=== PATIENT | male | born 1950 | race Caucasian/White ===

== ENCOUNTER 2023-03-05 16:13 | Emergency (ER) | payer MEDICARE, SELFPAY ==
[2023-03-05 16:19] VITALS: BP 163/111; PULSE 72; RESP 18; O2SAT 96; BMI 39.1
--- NOTE | 2023-03-05 16:32 | ED.GENADUL1 ---
HPI - General Adult General Chief complaint: Extremity Injury, Lower Stated complaint: leg injury Time Seen by Provider: 03/05/23 16:20 Source: patient Mode of arrival: walk-in History of Present Illness HPI narrative: 72-year-old male presents for right calf area pain. He's been having some soreness for a few days and he was walking today and felt a popping sensation. He didn't fall. He doesn't complain of pain specifically in the ankle or knee, is in the right posterior lateral calf region. No chest pain or shortness of breath. No personal history of deep vein thrombosis but he states that both his mother and father had them. Related Data Previous Rx's Medication Instructions Recorded acetaminophen 300 mg-codeine 30 mg 1 tab PO Q6H PRN pain 5 days #20 03/05/23 tablet tabs Allergies Allergy/AdvReac Type Severity Reaction Status Date / Time No Known Drug Allergies Allergy Verified 03/05/23 16:22 Review of Systems ROS Narrative A ten point review of systems is negative except as noted above. [facility] Medical History (Updated 03/05/23 @ 17:18 by Addison Ma MD) Hypertension ?I10 - Essential (primary) hypertension (ICD-10) Exam Narrative Exam Narrative: Nurses note and vital signs reviewed and patient is not hypoxic. General: The patient appears well and in no apparent distress. Patient is sitting in a wheelchair. Skin: Warm, dry, no pallor noted. There is no rash noted. Head: Normocephalic, atraumatic Eye: Normal conjunctiva, no drainage Ears, Nose, Mouth, and Throat: oral mucosa is moist. Nares patent. Cardiovascular: Regular Rate and Rhythm Respiratory: Patient is in no distress, no accessory muscle use, lungs are clear to auscultation, no wheezing, rales or rhonchi Back: non-tender GI: soft and nontender Musculoskeletal: he has some tenderness in the right calf area. He does not seem to have tenderness in the ankle or knee. Neurological: A&O, normal speech Psychiatric: Cooperative Constitutional Vital Signs, click to edit/add: Last Vital Signs Pulse 72 03/05/23 16:19 Resp 18 03/05/23 16:19 BP 163/111 H 03/05/23 16:19 Pulse Ox 96 03/05/23 16:19 O2 Del Method Room Air 03/05/23 16:25 Course Vital Signs Vital signs: Vital Signs Pulse Rate 72 03/05/23 16:19 Respiratory Rate 18 03/05/23 16:19 Blood Pressure 163/111 H 03/05/23 16:19 Pulse Oximetry 96 03/05/23 16:19 Oxygen Delivery Method Room Air 03/05/23 16:19 Pulse Rate 72 03/05/23 16:19 Respiratory Rate 18 03/05/23 16:19 Blood Pressure 163/111 H 03/05/23 16:19 Pulse Oximetry 96 03/05/23 16:19 Oxygen Delivery Method Room Air 03/05/23 16:25 Medical Decision Making MDM Narrative Medical decision making narrative: x-ray shows some soft tissue swelling but no fracture. Saman wrap applied and application checked by me and found be appropriate, he is neurovascular intact. Doppler ultrasound is ordered for tomorrow, it is not available today. The importance of returning tomorrow for the ultrasound was discussed thoroughly. I do not feel that Lovenox is warranted given that he already has some soft tissue swelling. If his Doppler were to be positive intervention would need to be taken. Differential Diagnosis Differential Diagnosis: leg sprain, leg fracture, deep vein thrombosis Imaging Data tibia x-ray: Radiologist's impression: Procedure: XR tibia fibula RT 2V IMAGES REVIEWED: XR tibia fibula RT 2V COMPARISON: None available. CLINICAL INDICATION: pain FINDINGS/IMPRESSION: 1. Moderate circumferential soft tissue swelling of the right leg extending into the ankle. 2. No soft tissue gas collections or radiopaque foreign bodies. 3. No evidence of acute osseous abnormality. Electronically authenticated by: OMAR HERRMANN Discharge Plan Discharge Chief Complaint: Extremity Injury, Lower Clinical Impression: Leg pain, right Patient Disposition: Home, Self-Care Time of Disposition Decision: 17:16 Condition: Good Mode of Transportation: Private Vehicle Prescriptions / Home Meds: New acetaminophen-codeine 300-30 mg tablet 1 tab PO Q6H PRN (Reason: pain) 5 Days Qty: 20 0RF Instructions: Leg Pain (ED) Additional Instructions: Doppler at 3 PM tomorrow; go to patient registration desk Blood pressure recheck from your PCP Stand Alone Forms: Portal Instructions Referrals: BRENDA BASILIO [Primary Care Provider] - 1 week
--- NOTE | 2023-03-05 16:48 | XR_ITS ---
The [address] [address] Patient Name: HALEIGH CARRIZALES MRN: [id number] date: 1950 Sex: M Assigned Patient Location: ED.MAIN Current Patient Location: ER Accession/Order Number: [id number] Exam Date: 03/05/2023 16:40 Report Date: 03/05/2023 17:05 At the request of: RADHA ZEPEDA Procedure: XR tibia fibula RT 2V IMAGES REVIEWED: XR tibia fibula RT 2V COMPARISON: None available. CLINICAL INDICATION: pain FINDINGS/IMPRESSION: 1. Moderate circumferential soft tissue swelling of the right leg extending into the ankle. 2. No soft tissue gas collections or radiopaque foreign bodies. 3. No evidence of acute osseous abnormality. Electronically authenticated by: OMAR HERRMANN Date: 03/05/2023 17:05
== END 2023-03-05 17:33 | disposition home or self-care (01) ==
PROVIDERS: Emergency Provider Emergency Medicine; PCP Nurse Practitioner Family
DX: M79.661 Pain in right lower leg (principal); I10 Essential (primary) hypertension
CPT/HCPCS: 73590; 99284

== ENCOUNTER 2023-03-06 15:07 | Outpatient (OUT) | payer MEDICARE, SELFPAY ==
--- NOTE | 2023-03-06 | US_ITS ---
The [address] [address] Patient Name: HALEIGH CARRIZALES MRN: [id number] date: 1950 Sex: M Assigned Patient Location: [facility] Current Patient Location: Accession/Order Number: [id number] Exam Date: 03/06/2023 15:00 Report Date: 03/09/2023 06:41 At the request of: RADHA ZEPEDA Procedure: US venous doppler LE RT EXAMINATION: US venous doppler LE RT HISTORY: LEG PAIN ; right calf pain COMPARISON: No relevant comparison available. FINDINGS: REGION: Right lower extremity THROMBI: None. COMPRESSIBILITY: Normal compressibility. FLOW: Normal waveform and antegrade flow between 5 and 20 cm/s. OTHER: None. US/US venous doppler LE RT IMPRESSION: 1. No deep vein thrombus within the right lower extremity. Electronically authenticated by: PARVIN JAMES Date: 03/09/2023 06:41
== END 2023-03-06 15:08 | disposition home or self-care (01) ==
LOC: RAD 15:08
PROVIDERS: PCP Nurse Practitioner Family; Visit Provider Emergency Medicine
DX: M79.661 Pain in right lower leg (principal)
CPT/HCPCS: 93971